=== PATIENT | male | born 1955 | race Caucasian/White ===

== ENCOUNTER 2017-02-17 06:52 | Emergency (ER) | payer OTHER ==
--- NOTE | 2017-02-17 07:53 | DIAGNOSTIC IMAGING REPORT ---
PROCEDURE: XR ELBOW 3 OR 4 VIEWS - RIGHT INDICATION: PAIN IN JOINT TECHNIQUE: Four views of the right elbow. COMPARISON: None. FINDINGS: Normal mineralization. No fractures. Normal osseous alignment. No joint effusion. No suspicious soft-tissue calcification or radiodense foreign bodies. IMPRESSION: 1. Intact right elbow.
--- NOTE | 2017-02-17 08:20 | ED CLINICAL REPORT ---
Clinical Report - Physicians/Mid Levels [facility] [address] [place] [address] 02/17/2017 6:53 [id number] Time Seen: 07:10. Arrived- By private vehicle. Historian- patient. HISTORY OF PRESENT ILLNESS Chief Complaint: Injury to the right elbow. The injury happened 4 days ago. Occurred at home. (He was using his right dominant arm to start a lawnmower). There was forceful exertion of the arm. Patient is experiencing severe pain. No other injury. REVIEW OF SYSTEMS The patient has had new onset of pain-related weakness of the right upper arm and right forearm. No swelling, tingling or numbness. All systems otherwise negative, except as recorded above. PAST HISTORY The patient's dominant hand is the right. Problems: Anxiety Reaction. Hypercholesterolemia. Additional Surgeries: no known surgeries. Medications: Atorvastatin Calcium Oral 20 mg, daily. Citalopram Hydrobromide Oral 30mg, daily. Allergies: No Known Drug Allergy. SOCIAL HISTORY Current every day heavy tobacco smoker (cigarette)- 1 pack per day. No alcohol use or drug use. Is a local resident. He lives with spouse. Has good social support. Patient is employed full-time. 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 He has time to travel and see her for the next 4 days and therefore will not be working. FAMILY HISTORY No significant family medical history. ADDITIONAL NOTES The nursing notes have been reviewed. PHYSICAL EXAM Vital Signs: 02/17/2017 06:57 BP: 132/64. HR: 64. RR: 16. O2 saturation: 98%. Temp: 98 F. Pain level now: 8/10. Have been reviewed. Appearance: Alert. Head: Head atraumatic. Eyes: Pupils equal, round and reactive to light. ENT: Pharynx normal. Neck: Neck supple. CVS: Heart sounds normal. Respiratory: Breath sounds normal. Abdomen: No visible injury. Back: ROM normal. Skin: Skin warm and dry. Normal skin color. Normal skin turgor. Extremities: Right elbow: mild tenderness located in the area of the lateral elbow. Limited ROM secondary to pain (diminished extension and supination). Neurovascular intact distally. Extremities otherwise negative. Neuro, Vascular and Tendons: Vascular status intact. Sensation intact. Motor intact. Tendon function intact. Neuro: No motor deficit. No sensory deficit. LABS, X-RAYS, AND EKG Rt Elbow X-ray: (IMPRESSION: 1. Intact right elbow.). The X-rays were interpreted by the radiologist and contemporaneously by me. PROGRESS AND PROCEDURES Course of Care: Patient is stable. Patient/family counseled. Old medical records ordered. Old records unavailable. Disposition: Discharged. Condition: stable. CLINICAL IMPRESSION Acute tendonitis in the right elbow. INSTRUCTIONS Apply ice for 20 minutes four times a day until better. Don't apply ice directly to skin and don't use while asleep. No driving or operating machinery while taking medication. Do not work with right hand for four days. Warnings: COMPLICATIONS: Complications from this condition include: possible injury to a tendon and possible injury to a ligament. Future problems may include loss of function and pain. GENERAL WARNINGS: Return or contact your physician immediately if your condition worsens or changes unexpectedly, if not improving as expected, or if other problems arise. Your Current Medications: CONTINUE TAKING THE FOLLOWING MEDICATIONS: Atorvastatin Calcium Oral : 20 mg daily. Citalopram Hydrobromide Oral : 30mg daily. Prescription Medications: Ultram 50 mg: take 1-2 orally every 6 hours as needed for pain. Dispense fifteen (15). No refills. Substitution is permissible. OTC Medications: Motrin (available over the counter): take according to label instructions. Follow-up: Follow up with your doctor Wednesday in five days if not better. Understanding of the discharge instructions verbalized by patient and family. (Electronically signed by Narciso Oneill MD 02/17/2017 9:29)
--- NOTE | 2017-02-17 08:20 | ED NURSING NOTES ---
Clinical Report - Nurses [facility] [address] [place] [address] 02/17/2017 6:53 [id number] TRI[facility] Triage time 06:57. Acuity: LEVEL 4. Chief Complaint: RIGHT UPPER EXTREMITY PAIN. Location of symptoms- right shoulder, right arm, right elbow, right forearm and right wrist (worse in elbow). 07:06. Alert. SEPSIS SCREEN: Sepsis Screen. Negative (no infection suspected/documented). GURINDER COMA SCORE: Gurinder Coma Scale: 15- eyes open spontaneously (4); best verbal response- oriented x 4 (5); best motor response- obeys commands (6). --07:06 Garth Garner R.N. 06:57 02/17/17. BP: 132/64. HR: 64. RR: 16. O2 saturation: 98%. Temp: 98 F (oral). Pain level now: 05/27. --07:06 Garth Garner R.N. Weight: 72.5 kg stated. Height/Length: 67 inches Per Patient. BMI: 25.1. --07:02 Garth Garner R.N. Medications Citalopram Hydrobromide Oral 30mg, daily. --06:58 Garth Garner R.N. Atorvastatin Calcium Oral 20 mg, daily. --07:04 Garth Garner R.N. The following entry was struck and corrected by Garth Garner R.N., 07:04 (02/17/17) Reason for correction - other(correction). <<STRICKEN ENTRY-- Citalopram Hydrobromide Oral. --06:58 Garth Garner R.N. --END STRIKE>>. Allergies No Known Drug Allergy. --07:04 Garth Garner R.N. Medication/allergy information source: the patient. --07:06 Garth Garner R.N. History Arrived by private vehicle. Historian: patient. Accompanied by spouse. Primary physician ([facility]). No injury occurred. This occurred (2 days ago). 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 PAST MEDICAL HX: Tetanus status: more than 5 years ago. Immunizations: up-to-date. SOCIAL HX: Current every day heavy tobacco smoker- 1 pack per day. No alcohol use or drug use. No infectious disease exposure. ABUSE ASSESSMENT: No report of abuse. FALL RISK ASSESSMENT: Fall risk assessment completed. No fall risk identified. NUTRITIONAL RISK ASSESSMENT: The nutritional risk assessment revealed no deficiencies. FUNCTIONAL ASSESSMENT: Functional assessment: no impairments noted. LEARNING NEEDS ASSESSMENT: The learning needs assessment revealed no barriers. SKIN INTEGRITY ASSESSMENT: Skin integrity risk assessment completed. No skin integrity risk identified. --07:06 Garth Garner R.N. PROBLEMS: Hypercholesterolemia. Anxiety Reaction. --07:05 Garth Garner R.N. ADDITIONAL SURGERIES: no known surgeries. Interventions ID band on patient. To treatment room. --07:06 Garth Garner R.N. PHYSICAL ASSESSMENT 06:59. Ambulatory to room. Patient gowned. GENERAL / NEURO / PSYCH: Oriented X 4. Alert. EXTREMITIES: Neuro-vascular status intact to the extremity. SKIN: Skin intact. Skin is warm and dry. --07:07 Garth Garner R.N. NURSING PROGRESS NOTES 07:00. Two patient identifiers checked. Call light placed in reach. Bed placed in lowest position. Brakes of bed on. --07:00 Garth Garner R.N. 07:04. Patient ID band checked for patient name and birthdate. Clean catch urine collected with return of yellow-colored clear urine. Specimen labeled in the presence of the patient (Held). --07:09 Garth Garner R.N. Care transferred and report received (from Garth RN). --07:13 Selene Davis R.N. Patient informed about reason for wait and about plan of care. --08:09 Selene Davis R.N. DISPOSITION / DISCHARGE 08:23 02/17/17. BP: 115/85. HR: 52. RR: 14. O2 saturation: 99%. Temp: 98.0 F. Pain level now 8/10. --08:24 Kaylie Cruz 08:25 02/17/17. Condition at departure: improved. The goals identified in the patient's plan of care were met. No learning barriers present. Discharge instructions provided and reviewed with the patient. Reviewed warnings. Reviewed medication(s). Treatments reviewed. Patient verbalized understanding. Written instructions provided in Thai. The patient was discharged by the physician. He was discharged home and accompanied by family. He left the Emergency Department ambulatory and via private vehicle. Family member driving. FALL RISK ASSESSMENT: Fall risk assessment completed. No fall risk identified. --08:25 Tayo Ignacio R.N. 08:26 02/17/17. Departure time: 08:26. --08:26 Tayo Ignacio R.N. Locked/Released at 02/17/2017 8:28 by Tayo Ignacio R.N.
--- NOTE | 2017-02-17 08:20 | ED CLINICAL REPORT ---
Clinical Report - Physicians/Mid Levels [facility] [address] [place] [address] 02/17/2017 6:53 [id number] Time Seen: 07:10. Arrived- By private vehicle. Historian- patient. HISTORY OF PRESENT ILLNESS Chief Complaint: Injury to the right elbow. The injury happened 4 days ago. Occurred at home. (He was using his right dominant arm to start a lawnmower). There was forceful exertion of the arm. Patient is experiencing severe pain. No other injury. REVIEW OF SYSTEMS The patient has had new onset of pain-related weakness of the right upper arm and right forearm. No swelling, tingling or numbness. All systems otherwise negative, except as recorded above. PAST HISTORY The patient's dominant hand is the right. Problems: Anxiety Reaction. Hypercholesterolemia. Additional Surgeries: no known surgeries. Medications: Atorvastatin Calcium Oral 20 mg, daily. Citalopram Hydrobromide Oral 30mg, daily. Allergies: No Known Drug Allergy. SOCIAL HISTORY Current every day heavy tobacco smoker (cigarette)- 1 pack per day. No alcohol use or drug use. Is a local resident. He lives with spouse. Has good social support. Patient is employed full-time. 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 He has time to travel and see her for the next 4 days and therefore will not be working. FAMILY HISTORY No significant family medical history. ADDITIONAL NOTES The nursing notes have been reviewed. PHYSICAL EXAM Vital Signs: 02/17/2017 06:57 BP: 132/64. HR: 64. RR: 16. O2 saturation: 98%. Temp: 98 F. Pain level now: 8/10. Have been reviewed. Appearance: Alert. Head: Head atraumatic. Eyes: Pupils equal, round and reactive to light. ENT: Pharynx normal. Neck: Neck supple. CVS: Heart sounds normal. Respiratory: Breath sounds normal. Abdomen: No visible injury. Back: ROM normal. Skin: Skin warm and dry. Normal skin color. Normal skin turgor. Extremities: Right elbow: mild tenderness located in the area of the lateral elbow. Limited ROM secondary to pain (diminished extension and supination). Neurovascular intact distally. Extremities otherwise negative. Neuro, Vascular and Tendons: Vascular status intact. Sensation intact. Motor intact. Tendon function intact. Neuro: No motor deficit. No sensory deficit. LABS, X-RAYS, AND EKG Rt Elbow X-ray: (IMPRESSION: 1. Intact right elbow.). The X-rays were interpreted by the radiologist and contemporaneously by me. PROGRESS AND PROCEDURES Course of Care: Patient is stable. Patient/family counseled. Old medical records ordered. Old records unavailable. Disposition: Discharged. Condition: stable. CLINICAL IMPRESSION Acute tendonitis in the right elbow. INSTRUCTIONS Apply ice for 20 minutes four times a day until better. Don't apply ice directly to skin and don't use while asleep. No driving or operating machinery while taking medication. Do not work with right hand for four days. Warnings: COMPLICATIONS: Complications from this condition include: possible injury to a tendon and possible injury to a ligament. Future problems may include loss of function and pain. GENERAL WARNINGS: Return or contact your physician immediately if your condition worsens or changes unexpectedly, if not improving as expected, or if other problems arise. Your Current Medications: CONTINUE TAKING THE FOLLOWING MEDICATIONS: Atorvastatin Calcium Oral : 20 mg daily. Citalopram Hydrobromide Oral : 30mg daily. Prescription Medications: Ultram 50 mg: take 1-2 orally every 6 hours as needed for pain. Dispense fifteen (15). No refills. Substitution is permissible. OTC Medications: Motrin (available over the counter): take according to label instructions. Follow-up: Follow up with your doctor Wednesday in five days if not better. Understanding of the discharge instructions verbalized by patient and family. (Electronically signed by Narciso Oneill MD 02/17/2017 9:29)
--- NOTE | 2017-02-17 08:20 | ED ORDER SUMMARY ---
..... Patient: MANUEL ARGUETA OrderSheet [facility] VisitID: [id number] [address] [place] [address] 61y, M Registration Date/Time: 02/17/2017 ORDER SHEET Weight: 72.5 kg (stated) Allergies: No Known Drug Allergy GENERAL ORDERS: Elbow 3 or 4V Right Urgent (07:11 02/17/2017 Donny Varghese verbal order read back to Gaby NOEL) (Ack 7:14 Astrid) (8:25 Renea Varghese) MEDICATION ORDERS: IV FLUIDS: ORDER SHEET NOTES: [Electronically signed by Tayo Ignacio R.N. (08:28 02/17/2017)] [Electronically signed by Narciso Oneill MD (09:29 02/17/2017)] [Electronically locked/signed by Tayo Ignacio R.N. (08:28 02/17/2017)]
--- NOTE | 2017-02-17 08:20 | ED ORDER SUMMARY ---
..... Patient: MANUEL ARGUETA OrderSheet [facility] VisitID: [id number] [address] [place] [address] 61y, M Registration Date/Time: 02/17/2017 ORDER SHEET Weight: 72.5 kg (stated) Allergies: No Known Drug Allergy GENERAL ORDERS: Elbow 3 or 4V Right Urgent (07:11 02/17/2017 Donny Varghese verbal order read back to Gaby NOEL) (Ack 7:14 Astrid) (8:25 Renea Varghese) MEDICATION ORDERS: IV FLUIDS: ORDER SHEET NOTES: [Electronically signed by Tayo Ignacio R.N. (08:28 02/17/2017)] [Electronically signed by Narciso Oneill MD (09:29 02/17/2017)] [Electronically locked/signed by Tayo Ignacio R.N. (08:28 02/17/2017)]
--- NOTE | 2017-02-17 08:20 | ED NURSING NOTES ---
Clinical Report - Nurses [facility] [address] [place] [address] 02/17/2017 6:53 [id number] Triage time 06:57. Acuity: LEVEL 4. Chief Complaint: RIGHT UPPER EXTREMITY PAIN. Location of symptoms- right shoulder, right arm, right elbow, right forearm and right wrist (worse in elbow). 07:06. Alert. SEPSIS SCREEN: Sepsis Screen. Negative (no infection suspected/documented). GURINDER COMA SCORE: Gurinder Coma Scale: 15- eyes open spontaneously (4); best verbal response- oriented x 4 (5); best motor response- obeys commands (6). --07:06 Garth Garner R.N. 06:57 02/17/17. BP: 132/64. HR: 64. RR: 16. O2 saturation: 98%. Temp: 98 F (oral). Pain level now: 05/27. --07:06 Garth Garenr R.N. Weight: 72.5 kg stated. Height/Length: 67 inches Per Patient. BMI: 25.1. --07:02 Garth Garner R.N. Medications Citalopram Hydrobromide Oral 30mg, daily. --06:58 Garth Garner R.N. Atorvastatin Calcium Oral 20 mg, daily. --07:04 Garth Garner R.N. The following entry was struck and corrected by Garth Garner R.N., 07:04 (02/17/17) Reason for correction - other(correction). <<STRICKEN ENTRY-- Citalopram Hydrobromide Oral. --06:58 Garth Garner R.N. --END STRIKE>>. Allergies No Known Drug Allergy. --07:04 Garth Garner R.N. Medication/allergy information source: the patient. --07:06 Garth Garner R.N. History Arrived by private vehicle. Historian: patient. Accompanied by spouse. Primary physician ([facility]). No injury occurred. This occurred (2 days ago). 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 PAST MEDICAL HX: Tetanus status: more than 5 years ago. Immunizations: up-to-date. SOCIAL HX: Current every day heavy tobacco smoker- 1 pack per day. No alcohol use or drug use. No infectious disease exposure. ABUSE ASSESSMENT: No report of abuse. FALL RISK ASSESSMENT: Fall risk assessment completed. No fall risk identified. NUTRITIONAL RISK ASSESSMENT: The nutritional risk assessment revealed no deficiencies. FUNCTIONAL ASSESSMENT: Functional assessment: no impairments noted. LEARNING NEEDS ASSESSMENT: The learning needs assessment revealed no barriers. SKIN INTEGRITY ASSESSMENT: Skin integrity risk assessment completed. No skin integrity risk identified. --07:06 Garth Garner R.N. PROBLEMS: Hypercholesterolemia. Anxiety Reaction. --07:05 Garth Garner R.N. ADDITIONAL SURGERIES: no known surgeries. Interventions ID band on patient. To treatment room. --07:06 Garth Garner R.N. PHYSICAL ASSESSMENT 06:59. Ambulatory to room. Patient gowned. GENERAL / NEURO / PSYCH: Oriented X 4. Alert. EXTREMITIES: Neuro-vascular status intact to the extremity. SKIN: Skin intact. Skin is warm and dry. --07:07 Garth Garner R.N. NURSING PROGRESS NOTES 07:00. Two patient identifiers checked. Call light placed in reach. Bed placed in lowest position. Brakes of bed on. --07:00 Garth Garner R.N. 07:04. Patient ID band checked for patient name and birthdate. Clean catch urine collected with return of yellow-colored clear urine. Specimen labeled in the presence of the patient (Held). --07:09 Garth Garner R.N. Care transferred and report received (from Garth RN). --07:13 Selene Davis R.N. Patient informed about reason for wait and about plan of care. --08:09 Selene Davis R.N. DISPOSITION / DISCHARGE 08:23 02/17/17. BP: 115/85. HR: 52. RR: 14. O2 saturation: 99%. Temp: 98.0 F. Pain level now 8/10. --08:24 Kaylie Cruz 08:25 02/17/17. Condition at departure: improved. The goals identified in the patient's plan of care were met. No learning barriers present. Discharge instructions provided and reviewed with the patient. Reviewed warnings. Reviewed medication(s). Treatments reviewed. Patient verbalized understanding. Written instructions provided in Amharic. The patient was discharged by the physician. He was discharged home and accompanied by family. He left the Emergency Department ambulatory and via private vehicle. Family member driving. FALL RISK ASSESSMENT: Fall risk assessment completed. No fall risk identified. --08:25 Tayo Ignacio R.N. 08:26 02/17/17. Departure time: 08:26. --08:26 Tayo Ignacio R.N. Locked/Released at 02/17/2017 8:28 by Tayo Ignacio R.N.
--- NOTE | 2017-02-17 09:29 | ED DISCHARGE INSTRUCTIONS ---
Patient: MANUEL ARGUETA General Instructions [facility] VisitID: [id number] [place] [address] 61y, M Registration Date/Time: 02/17/2017 Acute tendonitis in the right elbow. INSTRUCTIONS Apply ice for 20 minutes four times a day until better. Don't apply ice directly to skin and don't use while asleep. No driving or operating machinery while taking medication. Do not work with right hand for four days. Warnings: COMPLICATIONS: Complications from this condition include: possible injury to a tendon and possible injury to a ligament. Future problems may include loss of function and pain. GENERAL WARNINGS: Return or contact your physician immediately if your condition worsens or changes unexpectedly, if not improving as expected, or if other problems arise. Your Current Medications: CONTINUE TAKING THE FOLLOWING MEDICATIONS: Atorvastatin Calcium Oral : 20 mg daily. Citalopram Hydrobromide Oral : 30mg daily. Prescription Medications: Ultram 50 mg: take 1-2 orally every 6 hours as needed for pain. Dispense fifteen (15). No refills. Substitution is permissible. OTC Medications: Motrin (available over the counter): take according to label instructions. Follow-up: Follow up with your doctor Wednesday in five days if not better. Understanding of the discharge instructions verbalized by patient and family. ADDITIONAL INFORMATION Tendonitis A tendon is the thick fibrous cord that joins muscle to bone and causes joints to move. Tendonitis is inflammation of the tendon which may be due to overuse, injury or infection. This usually involves the shoulders, forearm, wrist, hands and foot. Symptoms include local pain, swelling and tenderness to the touch. Movement of the involved joint increases the pain. Tendonitis requires about 4 to 6 weeks to heal. It is treated by preventing motion of the tendon with a splint or brace and use of anti-inflammatory medicine. Home Care: Apply an ice pack (ice cubes in a plastic bag, wrapped in a towel) over the injured area for 20 minutes every 1-2 hours the first day for pain relief. Continue this 3-4 times a day until the pain and swelling goes away. Rest the inflamed joint and protect it from movement. You may use ibuprofen (Motrin, Advil) or naproxen (Aleve, Naprosyn) to treat pain and inflammation, unless another medicine was prescribed. If you can't take these medicines, acetaminophen (Tylenol) may help with the pain, but does not treat inflammation. [NOTE : If you have chronic liver or kidney disease or ever had a stomach ulcer or GI bleeding, talk with your doctor before using these medicines.] As your symptoms improve, begin gradual motion at the involved joint. Follow Up With Your Doctor If Not Improving After The First Five Days Of Treatment. Get Prompt Medical Attention If Any Of The Following Occur: Redness over the painful area Increasing pain or swelling at the joint Fever of 100.4F (38C) or higher, or as directed by your healthcare provider Tramadol Hydrochloride Oral tablet What is this medicine? TRAMADOL (TRA ma dole) is a pain reliever. It is used to treat moderate to severe pain in adults. How should I use this medicine? Take this medicine by mouth with a full glass of water. Follow the directions on the prescription label. If the medicine upsets your stomach, take it with food or milk. Do not take more medicine than you are told to take. Talk to your fermentologist regarding the use of this medicine in children. Special care may be needed. What side effects may I notice from receiving this medicine? Side effects that you should report to your doctor or health inpatient care manager rn as soon as possible: allergic reactions like skin rash, itching or hives, swelling of the face, lips, or tongue breathing difficulties, wheezing confusion itching light headedness or fainting spells redness, blistering, peeling or loosening of the skin, including inside the mouth seizures Side effects that usually do not require medical attention (report to your doctor or health inpatient care manager rn if they continue or are bothersome): constipation dizziness drowsiness headache nausea, vomiting What may interact with this medicine? Do not take this medicine with any of the following medications: MAOIs like Carbex, Eldepryl, Marplan, Nardil, and Parnate This medicine may also interact with the following medications: alcohol or medicines that contain alcohol antihistamines benzodiazepines bupropion carbamazepine or oxcarbazepine clozapine cyclobenzaprine digoxin furazolidone linezolid medicines for depression, anxiety, or psychotic disturbances medicines for migraine headache like almotriptan, eletriptan, frovatriptan, naratriptan, rizatriptan, sumatriptan, zolmitriptan medicines for pain like pentazocine, buprenorphine, butorphanol, meperidine, nalbuphine, and propoxyphene medicines for sleep muscle relaxants naltrexone phenobarbital phenothiazines like perphenazine, thioridazine, chlorpromazine, mesoridazine, fluphenazine, prochlorperazine, promazine, and trifluoperazine procarbazine warfarin What if I miss a dose? If you miss a dose, take it as soon as you can. If it is almost time for your next dose, take only that dose. Do not take double or extra doses. Where should I keep my medicine? Keep out of the reach of children. Store at room temperature between 15 and 30 degrees C (59 and 86 degrees F). Keep container tightly closed. Throw away any unused medicine after the expiration date. What should I tell my health care provider before I take this medicine? They need to know if you have any of these conditions: brain tumor depression drug abuse or addiction head injury if you frequently drink alcohol containing drinks kidney disease or trouble passing urine liver disease lung disease, asthma, or breathing problems seizures or epilepsy suicidal thoughts, plans, or attempt; a previous suicide attempt by you or a family member an unusual or allergic reaction to tramadol, codeine, other medicines, foods, dyes, or preservatives or trying to get breast-feeding What should I watch for while using this medicine? Tell your doctor or health inpatient care manager rn if your pain does not go away, if it gets worse, or if you have new or a different type of pain. You may develop tolerance to the medicine. Tolerance means that you will need a higher dose of the medicine for pain relief. Tolerance is normal and is expected if you take this medicine for a long time. Do not suddenly stop taking your medicine because you may develop a severe reaction. Your body becomes used to the medicine. This does NOT mean you are addicted. Addiction is a behavior related to getting and using a drug for a non-medical reason. If you have pain, you have a medical reason to take pain medicine. Your doctor will tell you how much medicine to take. If your doctor wants you to stop the medicine, the dose will be slowly lowered over time to avoid any side effects. You may get drowsy or dizzy. Do not drive, use machinery, or do anything that needs mental alertness until you know how this medicine affects you. Do not stand or sit up quickly, especially if you are an older patient. This reduces the risk of dizzy or fainting spells. Alcohol can increase or decrease the effects of this medicine. Avoid alcoholic drinks. You may have constipation. Try to have a bowel movement at least every 2 to 3 days. If you do not have a bowel movement for 3 days, call your doctor or health inpatient care manager rn. Your mouth may get dry. Chewing sugarless gum or sucking hard candy, and drinking plenty of water may help. Contact your doctor if the problem does not go away or is severe. Ibuprofen Oral tablet What is this medicine? IBUPROFEN (eye BYOO proe fen) is a non-steroidal anti-inflammatory drug (NSAID). It is used for dental pain, fever, headaches or migraines, osteoarthritis, rheumatoid arthritis, or painful monthly periods. It can also relieve minor aches and pains caused by a cold, flu, or sore throat. How should I use this medicine? Take this medicine by mouth with a glass of water. Follow the directions on the prescription label. Take this medicine with food if your stomach gets upset. Try to not lie down for at least 10 minutes after you take the medicine. Take your medicine at regular intervals. Do not take your medicine more often than directed. A special MedGuide will be given to you by the pharmacist with each prescription and refill. Be sure to read this information carefully each time. Talk to your fermentologist regarding the use of this medicine in children. Special care may be needed. What side effects may I notice from receiving this medicine? Side effects that you should report to your doctor or health inpatient care manager rn as soon as possible: allergic reactions like skin rash, itching or hives, swelling of the face, lips, or tongue black or bloody stools, blood in the urine or in vomit breathing problems changes in vision chest pain general ill feeling or flu-like symptoms nausea or vomiting redness, blistering, peeling or loosening of the skin, including inside the mouth slurred speech or weakness on one side of the body stomach pain unexplained weight gain or swelling unusually weak or tired yellowing of eyes or skin Side effects that usually do not require medical attention (report to your doctor or health inpatient care manager rn if they continue or are bothersome): constipation or diarrhea dizziness gas or heartburn stomach upset What may interact with this medicine? Do not take this medicine with any of the following medications: cidofovir ketorolac methotrexate pemetrexed This medicine may also interact with the following medications: alcohol aspirin diuretics lithium other drugs for inflammation like prednisone warfarin What if I miss a dose? If you miss a dose, take it as soon as you can. If it is almost time for your next dose, take only that dose. Do not take double or extra doses. Where should I keep my medicine? Keep out of the reach of children. Store at room temperature between 15 and 30 degrees C (59 and 86 degrees F). Keep container tightly closed. Throw away any unused medicine after the expiration date. What should I tell my health care provider before I take this medicine? They need to know if you have any of these conditions: asthma cigarette smoker drink more than 3 alcohol containing drinks a day heart disease or circulation problems such as heart failure or leg edema (fluid retention) high blood pressure kidney disease liver disease stomach bleeding or ulcers an unusual or allergic reaction to ibuprofen, aspirin, other NSAIDS, other medicines, foods, dyes, or preservatives or trying to get breast-feeding What should I watch for while using this medicine? Tell your doctor or healthcare professional if your symptoms do not start to get better or if they get worse. This medicine does not prevent heart attack or stroke. In fact, this medicine may increase the chance of a heart attack or stroke. The chance may increase with longer use of this medicine and in people who have heart disease. If you take aspirin to prevent heart attack or stroke, talk with your doctor or health inpatient care manager rn. Do not take other medicines that contain aspirin, ibuprofen, or naproxen with this medicine. Side effects such as stomach upset, nausea, or ulcers may be more likely to occur. Many medicines available without a prescription should not be taken with this medicine. This medicine can cause ulcers and bleeding in the stomach and intestines at any time during treatment. Ulcers and bleeding can happen without warning symptoms and can cause . To reduce your risk, do not smoke cigarettes or drink alcohol while you are taking this medicine. You may get drowsy or dizzy. Do not drive, use machinery, or do anything that needs mental alertness until you know how this medicine affects you. Do not stand or sit up quickly, especially if you are an older patient. This reduces the risk of dizzy or fainting spells. This medicine can cause you to bleed more easily. Try to avoid damage to your teeth and gums when you brush or floss your teeth. You have been given the following additional information: Tendonitis Tramadol Hydrochloride Oral tablet Ibuprofen Oral tablet No driving or operating machinery while taking medication. Do not work with right hand for four days. (Electronically signed by Narciso Oneill MD 02/17/2017 9:29)
--- NOTE | 2017-02-17 09:30 | ED MED RECONCILIATION SUMMARY ---
Patient: MANUEL ARGUETA Medication Reconciliation Report [facility] VisitID: [id number] [address] [place] [address] 61y, M Registration Date/Time: 02/17/2017 Weight: 72.5 kg Height/Length: 67 in. BMI: 25.1 ALLERGIES: No Known Drug Allergy The patient's Home Medications are listed below: CONTINUE TAKING THE FOLLOWING MEDICATIONS: Atorvastatin Calcium Oral 20 mg, daily Citalopram Hydrobromide Oral 30mg, daily The source(s) of the original Home Medication information: patient The following Medications were given to the patient in the Emergency Department: None. The following Medications were prescribed to the patient: Motrin (available over the counter): take according to label instructions. -- Narciso Oneill MD Ultram 50 mg: take 1-2 orally every 6 hours as needed for pain. Dispense fifteen (15). No refills. Substitution is permissible. -- Narciso Oneill MD
--- NOTE | 2017-02-17 09:30 | ED MAR SUMMARY ---
..... Medication Administration Record [facility] [address], [place] [id number] Patient: MANUEL ARGUETA Visit ID: [id number] 61y, M Weight: 72.5 kg Height/Length: 67 in BMI: 25.1 ALLERGIES: No Known Drug Allergy
--- NOTE | 2017-02-17 09:30 | ED MAR SUMMARY ---
..... Medication Administration Record [facility] [address] [place], [place] [id number] Patient: MANUEL ARGUETA Visit ID: [id number] 61y, M Weight: 72.5 kg Height/Length: 67 in BMI: 25.1 ALLERGIES: No Known Drug Allergy
--- NOTE | 2017-02-17 09:30 | ED MED RECONCILIATION SUMMARY ---
Patient: MANUEL ARGUETA Medication Reconciliation Report [facility] VisitID: [id number] [address] [place] [address] 61y, M Registration Date/Time: 02/17/2017 Weight: 72.5 kg Height/Length: 67 in. BMI: 25.1 ALLERGIES: No Known Drug Allergy The patient's Home Medications are listed below: CONTINUE TAKING THE FOLLOWING MEDICATIONS: Atorvastatin Calcium Oral 20 mg, daily Citalopram Hydrobromide Oral 30mg, daily The source(s) of the original Home Medication information: patient The following Medications were given to the patient in the Emergency Department: None. The following Medications were prescribed to the patient: Motrin (available over the counter): take according to label instructions. -- Narciso Oneill MD Ultram 50 mg: take 1-2 orally every 6 hours as needed for pain. Dispense fifteen (15). No refills. Substitution is permissible. -- Narciso Oneill MD
== END 2017-02-17 08:26 | disposition home or self-care (01) ==
LOC: ED SRH 06:52
DX: M65.831 Other synovitis and tenosynovitis, right forearm (principal); X58.XXXA Exposure to other specified factors, initial encounter; Y93.9 Activity, unspecified; Y92.019 Unspecified place in single-family (private) house as the place of occurrence of the external cause; Y99.9 Unspecified external cause status; E78.00 Pure hypercholesterolemia, unspecified; Z79.899 Other long term (current) drug therapy; F17.219 Nicotine dependence, cigarettes, with unspecified nicotine-induced disorders

== ENCOUNTER 2017-02-18 06:39 | Emergency (ER) | payer OTHER ==
--- NOTE | 2017-02-18 07:31 | ED CLINICAL REPORT ---
Clinical Report - Physicians/Mid Levels [facility] [address] [place] [address] 02/18/2017 6:40 Patient: MANUEL ARGUETA Time Seen: 06:56. Arrived- By private vehicle. Historian- patient and spouse. HISTORY OF PRESENT ILLNESS Chief Complaint: Injury to the right elbow. The injury happened 5 - 6 days ago. 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 There was forceful exertion of the arm. The patient has been repetitively working with the arm. Occurred at home and work. Patient is experiencing moderate pain. Patient also notes injury to the neck. Patient denies injury to the head and other injury (He also notes intermittent posterior neck pain when he stops icing his left elbow). ( Seen yesterday at [facility] ED). REVIEW OF SYSTEMS The patient has had swelling,, tingling, and numbness. No weakness, suspected foreign body or skin laceration. He is under a lot of stress - states that he has to go to [place] today to see his dying Mother. All systems otherwise negative, except as recorded above. PAST HISTORY Problems: Anxiety Reaction. Hypercholesterolemia. Additional Surgeries: no known surgeries. The patient's dominant hand is the right. Tetanus immunization status is unknown. SOCIAL HISTORY Smoker- current status unknown. No alcohol use or drug use. 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 ADDITIONAL NOTES The nursing notes have been reviewed. PHYSICAL EXAM Vital Signs: 02/18/2017 06:45 BP: 96/62. HR: 55. RR: 18. O2 saturation: 98%. Temp: 97.8 F. Pain level now: 8/10. Appearance: Alert. Oriented X3. No acute distress. Head: Head atraumatic. Eyes: Eyes normal inspection. No scleral icterus or pale conjunctivae. ENT: Nose normal. Pharynx normal. Neck: Normal inspection. Neck supple. No pain with movement of head/neck. C-spine non-tender. No vertebral tenderness. CVS: Normal heart rate and rhythm. Heart sounds normal. Pulses normal. Respiratory: No respiratory distress. Breath sounds normal. Abdomen: No visible injury. Soft and nontender. No mass. Back: Normal inspection. No tenderness. Skin: Skin intact. Skin warm and dry. Normal skin color. Normal skin turgor. Extremities: No signs of infection present in the upper extremities. Right elbow: mild tenderness located in the area of the posterior elbow. Neurovascular intact distally. No erythema, swelling, laceration, abrasion or ecchymosis. No puncture wound, foreign body or deformity. No joint effusion or limitation in ROM. Upper extremity otherwise negative. Extremities otherwise negative. Neuro, Vascular and Tendons: Vascular status intact. Sensation intact. Motor intact. Tendon function intact. Neuro: Oriented X 3. No motor deficit. Sensory deficit present. (ulnar aspect of right hand). Altered sensation to light touch. LABS, X-RAYS, AND EKG Rt Elbow X-ray: No fracture. Normal alignment. No bony lesion, air in the soft tissue or foreign body. Soft tissues normal. Joint spaces normal. (DONE YESTERDAY). Views: AP, lateral and oblique. Technique: good. The X-rays were interpreted contemporaneously by me. PROGRESS AND PROCEDURES Course of Care: Most c/w nerve compression / contusion / cubital tunnel syndrome secondary to inflammation /injury - doubt cervical radiculopathy (pt states pain in neck and elbow resolve with ice to elbow). No signs of infection now in elbow or spine - no reason to suspect spinal / epidural infectious process. Patient/family counseled. Old ED records reviewed. Disposition: Discharged. Condition: stable and improved. CLINICAL IMPRESSION Acute nontraumatic pain in the neck. 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 Acute inflammatory tendonitis in the right elbow. Possible acute right lower cervical radiculopathy. INSTRUCTIONS Apply ice. Elevate affected areas above chest level. (Cubital Tunnel Syndrome is a condition that involves pressure or stretching of the ulnar nerve (also known as the funny bone nerve), which can cause numbness or tingling in the ring and small fingers, pain in the forearm, and/or weakness in the hand. The ulnar nerve (Figure 1) runs in a groove on the inner side of the elbow. Cubital tunnel syndrome can cause pain, loss of sensation, tingling and/or weakness. Pins and needles usually are felt in the ring and small fingers. These symptoms are often felt when the elbow is bent for a long period of time, such as while holding a phone or while sleeping. Some people feel weak or clumsy. Do not take ultram and oxycodone at the same time). Warnings: INFECTION: Watch for signs of infection (increasing heat and redness, pus-like drainage, swelling, or increased pain). Return or see your doctor if these signs occur. SEDATIVE MEDICATION: You were given sedative medication during your visit. Do not drive or operate dangerous machinery. CONTROLLED SUBSTANCE WARNINGS. GENERAL WARNINGS: Return or contact your physician immediately if your condition worsens or changes unexpectedly, if not improving as expected, or if other problems arise. Your Current Medications: CONTINUE TAKING THE FOLLOWING MEDICATIONS: Atorvastatin Calcium Oral : 20 mg daily. Citalopram Hydrobromide Oral : 30mg daily. Prescription Medications: Oxycodone/APAP 5 mg/325 mg: take 1-2 tablets orally every 8 hours as needed for pain. Dispense twelve (12). No refill. Prednisone 20 mg: take 3 orally every day for 5 days. Dispense fifteen (15). No refills. OTC Medications: Acetaminophen (available over the counter): take according to label instructions. Motrin IB 200 mg (available over the counter): take 2 orally every 8 hours as needed for pain, stiffness or swelling Follow-up: Follow up with your doctor [facility] in about five days. (Electronically signed by Uriel Estrada DO 02/18/2017 8:12)
--- NOTE | 2017-02-18 07:31 | ED CLINICAL REPORT ---
Clinical Report - Physicians/Mid Levels [facility] [address] [place] [address] 02/18/2017 6:40 Patient: MANUEL ARGUETA Time Seen: 06:56. Arrived- By private vehicle. Historian- patient and spouse. HISTORY OF PRESENT ILLNESS Chief Complaint: Injury to the right elbow. The injury happened 5 - 6 days ago. 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 There was forceful exertion of the arm. The patient has been repetitively working with the arm. Occurred at home and work. Patient is experiencing moderate pain. Patient also notes injury to the neck. Patient denies injury to the head and other injury (He also notes intermittent posterior neck pain when he stops icing his left elbow). ( Seen yesterday at [facility] ED). REVIEW OF SYSTEMS The patient has had swelling,, tingling, and numbness. No weakness, suspected foreign body or skin laceration. He is under a lot of stress - states that he has to go to [place] today to see his dying Mother. All systems otherwise negative, except as recorded above. PAST HISTORY Problems: Anxiety Reaction. Hypercholesterolemia. Additional Surgeries: no known surgeries. The patient's dominant hand is the right. Tetanus immunization status is unknown. SOCIAL HISTORY Smoker- current status unknown. No alcohol use or drug use. 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 ADDITIONAL NOTES The nursing notes have been reviewed. PHYSICAL EXAM Vital Signs: 02/18/2017 06:45 BP: 96/62. HR: 55. RR: 18. O2 saturation: 98%. Temp: 97.8 F. Pain level now: 8/10. Appearance: Alert. Oriented X3. No acute distress. Head: Head atraumatic. Eyes: Eyes normal inspection. No scleral icterus or pale conjunctivae. ENT: Nose normal. Pharynx normal. Neck: Normal inspection. Neck supple. No pain with movement of head/neck. C-spine non-tender. No vertebral tenderness. CVS: Normal heart rate and rhythm. Heart sounds normal. Pulses normal. Respiratory: No respiratory distress. Breath sounds normal. Abdomen: No visible injury. Soft and nontender. No mass. Back: Normal inspection. No tenderness. Skin: Skin intact. Skin warm and dry. Normal skin color. Normal skin turgor. Extremities: No signs of infection present in the upper extremities. Right elbow: mild tenderness located in the area of the posterior elbow. Neurovascular intact distally. No erythema, swelling, laceration, abrasion or ecchymosis. No puncture wound, foreign body or deformity. No joint effusion or limitation in ROM. Upper extremity otherwise negative. Extremities otherwise negative. Neuro, Vascular and Tendons: Vascular status intact. Sensation intact. Motor intact. Tendon function intact. Neuro: Oriented X 3. No motor deficit. Sensory deficit present. (ulnar aspect of right hand). Altered sensation to light touch. LABS, X-RAYS, AND EKG Rt Elbow X-ray: No fracture. Normal alignment. No bony lesion, air in the soft tissue or foreign body. Soft tissues normal. Joint spaces normal. (DONE YESTERDAY). Views: AP, lateral and oblique. Technique: good. The X-rays were interpreted contemporaneously by me. PROGRESS AND PROCEDURES Course of Care: Most c/w nerve compression / contusion / cubital tunnel syndrome secondary to inflammation /injury - doubt cervical radiculopathy (pt states pain in neck and elbow resolve with ice to elbow). No signs of infection now in elbow or spine - no reason to suspect spinal / epidural infectious process. Patient/family counseled. Old ED records reviewed. Disposition: Discharged. Condition: stable and improved. CLINICAL IMPRESSION Acute nontraumatic pain in the neck. 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 Acute inflammatory tendonitis in the right elbow. Possible acute right lower cervical radiculopathy. INSTRUCTIONS Apply ice. Elevate affected areas above chest level. (Cubital Tunnel Syndrome is a condition that involves pressure or stretching of the ulnar nerve (also known as the funny bone nerve), which can cause numbness or tingling in the ring and small fingers, pain in the forearm, and/or weakness in the hand. The ulnar nerve (Figure 1) runs in a groove on the inner side of the elbow. Cubital tunnel syndrome can cause pain, loss of sensation, tingling and/or weakness. Pins and needles usually are felt in the ring and small fingers. These symptoms are often felt when the elbow is bent for a long period of time, such as while holding a phone or while sleeping. Some people feel weak or clumsy. Do not take ultram and oxycodone at the same time). Warnings: INFECTION: Watch for signs of infection (increasing heat and redness, pus-like drainage, swelling, or increased pain). Return or see your doctor if these signs occur. SEDATIVE MEDICATION: You were given sedative medication during your visit. Do not drive or operate dangerous machinery. CONTROLLED SUBSTANCE WARNINGS. GENERAL WARNINGS: Return or contact your physician immediately if your condition worsens or changes unexpectedly, if not improving as expected, or if other problems arise. Your Current Medications: CONTINUE TAKING THE FOLLOWING MEDICATIONS: Atorvastatin Calcium Oral : 20 mg daily. Citalopram Hydrobromide Oral : 30mg daily. Prescription Medications: Oxycodone/APAP 5 mg/325 mg: take 1-2 tablets orally every 8 hours as needed for pain. Dispense twelve (12). No refill. Prednisone 20 mg: take 3 orally every day for 5 days. Dispense fifteen (15). No refills. OTC Medications: Acetaminophen (available over the counter): take according to label instructions. Motrin IB 200 mg (available over the counter): take 2 orally every 8 hours as needed for pain, stiffness or swelling Follow-up: Follow up with your doctor [facility] in about five days. (Electronically signed by Uriel Estrada DO 02/18/2017 8:12)
--- NOTE | 2017-02-18 07:32 | ED NURSING NOTES ---
Clinical Report - Nurses [facility] [place] [address] 02/18/2017 6:40 Patient: MANUEL ARGUETA TRIAGE Triage time 06:45. Acuity: LEVEL 4. Chief Complaint: INJURY TO RIGHT ELBOW. INJURY TO THE RIGHT ELBOW. Alert. GURINDER COMA SCORE: Gurinder Coma Scale: 15- eyes open spontaneously (4); best verbal response- oriented x 4 (5); best motor response- obeys commands (6). --06:50 Marty Venegas R.N. 06:45 02/18/17. BP: 96/62 taken while sitting. HR: 55. RR: 18. O2 saturation: 98% on room air. Temp: 97.8 F (oral). Pain level now: 05/27. --06:50 Maryt Venegas R.N. Weight: 72.5 kg stated. Height/Length: 67 inches Per Patient. BMI: 25.1. --06:45 Marty Venegas R.N. Medications Atorvastatin Calcium Oral 20 mg, daily. Citalopram Hydrobromide Oral 30mg, daily. --06:45 Marty Venegas R.N. Allergies No Known Drug Allergy. --06:45 Marty Venegas R.N. History Arrived by private vehicle, and accompanied by family. This occurred ("Wednesday"). 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 He states that he was in this ER yesterday "and they did nothing for me."). SOCIAL HX: Heavy tobacco smoker (cigarette)- 1 pack per day. No alcohol use or drug use. ( denies SI/HI). ABUSE ASSESSMENT: No report of abuse. SELF HARM ASSESSMENT: A self harm assessment was performed. The patient answered "no" to the question "Do you have thoughts of harming or killing yourself?" and "Are you here because you tried to hurt yourself?". FALL RISK ASSESSMENT: Fall risk assessment completed. No fall risk identified. NUTRITIONAL RISK ASSESSMENT: The nutritional risk assessment revealed no deficiencies. FUNCTIONAL ASSESSMENT: Functional assessment: no impairments noted. LEARNING NEEDS ASSESSMENT: The learning needs assessment revealed no barriers. SKIN INTEGRITY ASSESSMENT: Skin integrity risk assessment completed. No skin integrity risk identified. --06:50 Marty Venegas R.N. PROBLEMS: Tendonitis. Anxiety Reaction. Hypercholesterolemia. --06:46 Marty Venegas R.N. ADDITIONAL SURGERIES: no known surgeries. Interventions ID band on patient. To treatment room. --06:50 Marty Venegas R.N. PHYSICAL ASSESSMENT Ambulatory to room. GENERAL / NEURO / PSYCH: Oriented X 4. Alert. Appears in pain. EXTREMITIES: Capillary refill is less than 2 seconds in the extremities. ( intermittent numbness in right 4th and 5th fingers. pinkness over right elbow, no external abnormalities observed on elbow area.). SKIN: Skin intact. Skin is warm and dry. --06:52 Marty Venegas R.N. NURSING PROGRESS NOTES Cold pack applied. Reassurance given. Two patient identifiers checked. Call light placed in reach. Side rails up x 1. Bed placed in lowest position. Brakes of bed on. Patient ready for evaluation- chart flagged. Care transferred. Patient waiting for evaluation. --06:52 Marty Venegas R.N. ( Report given to Sun Miguel RN). --07:00 Marty Venegas R.N. 07:00. Care transferred and report received. --07:16 Sun Mo R.N. DISPOSITION / DISCHARGE Departure time: 0740. Condition at departure: unchanged. ( vitals deferred). No learning barriers present. Discharge instructions provided and reviewed with the patient and spouse. Reviewed medication(s) information. Prescription(s) given to the patient. Treatments reviewed (ice). Reviewed referral to family practice for followup. The patient was discharged home and accompanied by spouse. He left the Emergency Department ambulatory and via private vehicle. --07:42 Sun Mo R.N. Locked/Released at 02/18/2017 7:43 by Sun Mo R.N.
--- NOTE | 2017-02-18 07:32 | ED NURSING NOTES ---
Clinical Report - Nurses [facility] [place] [address] 02/18/2017 6:40 Patient: MANUEL ARGUETA TRIAGE Triage time 06:45. Acuity: LEVEL 4. Chief Complaint: INJURY TO RIGHT ELBOW. INJURY TO THE RIGHT ELBOW. Alert. GURINDER COMA SCORE: Gurinder Coma Scale: 15- eyes open spontaneously (4); best verbal response- oriented x 4 (5); best motor response- obeys commands (6). --06:50 Marty Venegas R.N. 06:45 02/18/17. BP: 96/62 taken while sitting. HR: 55. RR: 18. O2 saturation: 98% on room air. Temp: 97.8 F (oral). Pain level now: 05/27. --06:50 Marty Venegas R.N. Weight: 72.5 kg stated. Height/Length: 67 inches Per Patient. BMI: 25.1. --06:45 Marty Venegas R.N. Medications Atorvastatin Calcium Oral 20 mg, daily. Citalopram Hydrobromide Oral 30mg, daily. --06:45 Marty Venegas R.N. Allergies No Known Drug Allergy. --06:45 Marty Venegas R.N. History Arrived by private vehicle, and accompanied by family. This occurred ("Wednesday"). 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 He states that he was in this ER yesterday "and they did nothing for me."). SOCIAL HX: Heavy tobacco smoker (cigarette)- 1 pack per day. No alcohol use or drug use. ( denies SI/HI). ABUSE ASSESSMENT: No report of abuse. SELF HARM ASSESSMENT: A self harm assessment was performed. The patient answered "no" to the question "Do you have thoughts of harming or killing yourself?" and "Are you here because you tried to hurt yourself?". FALL RISK ASSESSMENT: Fall risk assessment completed. No fall risk identified. NUTRITIONAL RISK ASSESSMENT: The nutritional risk assessment revealed no deficiencies. FUNCTIONAL ASSESSMENT: Functional assessment: no impairments noted. LEARNING NEEDS ASSESSMENT: The learning needs assessment revealed no barriers. SKIN INTEGRITY ASSESSMENT: Skin integrity risk assessment completed. No skin integrity risk identified. --06:50 Marty Venegas R.N. PROBLEMS: Tendonitis. Anxiety Reaction. Hypercholesterolemia. --06:46 Marty Venegas R.N. ADDITIONAL SURGERIES: no known surgeries. Interventions ID band on patient. To treatment room. --06:50 Marty Venegas R.N. PHYSICAL ASSESSMENT Ambulatory to room. GENERAL / NEURO / PSYCH: Oriented X 4. Alert. Appears in pain. EXTREMITIES: Capillary refill is less than 2 seconds in the extremities. ( intermittent numbness in right 4th and 5th fingers. pinkness over right elbow, no external abnormalities observed on elbow area.). SKIN: Skin intact. Skin is warm and dry. --06:52 Marty Venegas R.N. NURSING PROGRESS NOTES Cold pack applied. Reassurance given. Two patient identifiers checked. Call light placed in reach. Side rails up x 1. Bed placed in lowest position. Brakes of bed on. Patient ready for evaluation- chart flagged. Care transferred. Patient waiting for evaluation. --06:52 Marty Venegas R.N. ( Report given to Sun Miguel RN). --07:00 Marty Venegas R.N. 07:00. Care transferred and report received. --07:16 Sun Mo R.N. DISPOSITION / DISCHARGE Departure time: 0740. Condition at departure: unchanged. ( vitals deferred). No learning barriers present. Discharge instructions provided and reviewed with the patient and spouse. Reviewed medication(s) information. Prescription(s) given to the patient. Treatments reviewed (ice). Reviewed referral to family practice for followup. The patient was discharged home and accompanied by spouse. He left the Emergency Department ambulatory and via private vehicle. --07:42 Sun Mo R.N. Locked/Released at 02/18/2017 7:43 by Sun Mo R.N.
--- NOTE | 2017-02-18 08:12 | ED MED RECONCILIATION SUMMARY ---
Patient: MANUEL ARGUETA Medication Reconciliation Report [facility] VisitID: [id number] [place] [address] 61y, M Registration Date/Time: 02/18/2017 Weight: 72.5 kg Height/Length: 67 in. BMI: 25.1 ALLERGIES: No Known Drug Allergy The patient's Home Medications are listed below: CONTINUE TAKING THE FOLLOWING MEDICATIONS: Atorvastatin Calcium Oral 20 mg, daily Citalopram Hydrobromide Oral 30mg, daily The source(s) of the original Home Medication information: Not obtained. The following Medications were given to the patient in the Emergency Department: None. The following Medications were prescribed to the patient: Acetaminophen (available over the counter): take according to label instructions. -- Uriel Estrada DO Motrin IB 200 mg (available over the counter): take 2 orally every 8 hours as needed for pain, stiffness or swelling -- Uriel Estrada DO Oxycodone/APAP 5 mg/325 mg: take 1-2 tablets orally every 8 hours as needed for pain. Dispense twelve (12). No refill. -- Uriel Estrada DO Prednisone 20 mg: take 3 orally every day for 5 days. Dispense fifteen (15). No refills. -- Uriel Estrada DO
--- NOTE | 2017-02-18 08:12 | ED DISCHARGE INSTRUCTIONS ---
Patient: MANUEL ARGUETA General Instructions [facility] VisitID: [id number] [place] [address] 61y, M Registration Date/Time: 02/18/2017 Acute nontraumatic pain in the neck. 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 Acute inflammatory tendonitis in the right elbow. INSTRUCTIONS Apply ice. Elevate affected areas above chest level. (Cubital Tunnel Syndrome is a condition that involves pressure or stretching of the ulnar nerve (also known as the funny bone nerve), which can cause numbness or tingling in the ring and small fingers, pain in the forearm, and/or weakness in the hand. The ulnar nerve (Figure 1) runs in a groove on the inner side of the elbow. Cubital tunnel syndrome can cause pain, loss of sensation, tingling and/or weakness. Pins and needles usually are felt in the ring and small fingers. These symptoms are often felt when the elbow is bent for a long period of time, such as while holding a phone or while sleeping. Some people feel weak or clumsy. Do not take ultram and oxycodone at the same time). Warnings: INFECTION: Watch for signs of infection (increasing heat and redness, pus-like drainage, swelling, or increased pain). Return or see your doctor if these signs occur. SEDATIVE MEDICATION: You were given sedative medication during your visit. Do not drive or operate dangerous machinery. CONTROLLED SUBSTANCE WARNINGS. GENERAL WARNINGS: Return or contact your physician immediately if your condition worsens or changes unexpectedly, if not improving as expected, or if other problems arise. Your Current Medications: CONTINUE TAKING THE FOLLOWING MEDICATIONS: Atorvastatin Calcium Oral : 20 mg daily. Citalopram Hydrobromide Oral : 30mg daily. Prescription Medications: Oxycodone/APAP 5 mg/325 mg: take 1-2 tablets orally every 8 hours as needed for pain. Dispense twelve (12). No refill. Prednisone 20 mg: take 3 orally every day for 5 days. Dispense fifteen (15). No refills. OTC Medications: Acetaminophen (available over the counter): take according to label instructions. Motrin IB 200 mg (available over the counter): take 2 orally every 8 hours as needed for pain, stiffness or swelling Follow-up: Follow up with your doctor [facility] in about five days. ADDITIONAL INFORMATION Tendonitis A tendon is the thick fibrous cord that joins muscle to bone and causes joints to move. Tendonitis is inflammation of the tendon which may be due to overuse, injury or infection. This usually involves the shoulders, forearm, wrist, hands and foot. Symptoms include local pain, swelling and tenderness to the touch. Movement of the involved joint increases the pain. Tendonitis requires about 4 to 6 weeks to heal. It is treated by preventing motion of the tendon with a splint or brace and use of anti-inflammatory medicine. Home Care: Apply an ice pack (ice cubes in a plastic bag, wrapped in a towel) over the injured area for 20 minutes every 1-2 hours the first day for pain relief. Continue this 3-4 times a day until the pain and swelling goes away. Rest the inflamed joint and protect it from movement. You may use ibuprofen (Motrin, Advil) or naproxen (Aleve, Naprosyn) to treat pain and inflammation, unless another medicine was prescribed. If you can't take these medicines, acetaminophen (Tylenol) may help with the pain, but does not treat inflammation. [NOTE : If you have chronic liver or kidney disease or ever had a stomach ulcer or GI bleeding, talk with your doctor before using these medicines.] As your symptoms improve, begin gradual motion at the involved joint. Follow Up With Your Doctor If Not Improving After The First Five Days Of Treatment. Get Prompt Medical Attention If Any Of The Following Occur: Redness over the painful area Increasing pain or swelling at the joint Fever of 100.4F (38C) or higher, or as directed by your healthcare provider Ulnar Nerve Palsy The ulnar nerve travels down the arm, passing along the inside of the elbow. It controls movement and feeling in the wrist and hand. Palsy of the ulnar nerve occurs when there is injury to this nerve. The most common cause of ulnar nerve palsy is leaning on the elbow for long periods of time. An elbow fracture or dislocation can also injure the nerve. There are other causes, too. Ulnar nerve palsy causes a [id number] feeling and weakness in the hand. If the condition is prolonged, the muscles of the hand become thin and tight. The fingers bend into a contracted position. Treatment of permanent nerve damage involves physical therapy to prevent tightening of the muscles of the hand. Home Care Avoid resting your weight on your elbows when sitting at a table or riding in a vehicle. If you were given a sling, wear it as directed for support. Rest the arm until you get normal feeling and strength back. Follow Up with your doctor or as advised by our staff. Get Prompt Medical Attention if any of the following occur: Increasing arm swelling or pain Numbness or weakness of the face or leg Slurred speech, confusion, trouble speaking, walking or seeing Pinched Nerve, Neck [Cervical Radiculopathy] A pinched nerve in the neck (also called "Cervical Radiculopathy") is caused by irritation or pressure on the nerve that goes from the spinal cord to the arm. This may be caused by a bulging spinal disk (a "spinal disk" is the cushion between each spinal bone) or narrowing of the spinal joint due to arthritis. This can cause numbness, tingling, deep aching or electrical shooting pain from the side of the neck all the way down to the fingers on one side. A pinched nerve may begin after a sudden turning/bending force (such as in a car accident) or after a simple awkward movement. In either case, muscle spasm is commonly present and contributes to the pain. Home Care: 1) Rest and relax the muscles. Use a comfortable pillow that supports the head and keeps the spine in a neutral position. The position of the head should not be tilted forward or backward. A rolled up towel may help for a custom fit. 2) Some persons find relief with heat (hot shower, hot bath or heating pad) and massage, while others prefer cold packs (crushed or cubed ice in a plastic bag, wrapped in a towel) . Try both and use the method that feels best for 20 minutes several times a day. 3) You may use acetaminophen (Tylenol) or ibuprofen (Motrin, Advil) to control pain, unless another medicine was prescribed. [ NOTE : If you have chronic liver or kidney disease or ever had a stomach ulcer or GI bleeding, talk with your doctor before using these medicines.] Follow Up with your physician or this facility if your symptoms do not show signs of improvement after one week. Further testing may be needed. [NOTE: If x-rays were taken, they will be reviewed by a radiologist. You will be notified of any new findings that may affect your care.] Get Prompt Medical Attention if any of the following occur: -- Pain becomes worse and not controlled by prescribed pain medicine -- Weakness in the arm -- Increasing numbness in the arm -- Trouble breathing or swallowing Oxycodone Hydrochloride, Acetaminophen Oral tablet What is this medicine? ACETAMINOPHEN; OXYCODONE (a set a BENNY shanell fen; ox i KOE done) is a pain reliever. It is used to treat mild to moderate pain. How should I use this medicine? Take this medicine by mouth with a full glass of water. Follow the directions on the prescription label. Take your medicine at regular intervals. Do not take your medicine more often than directed. Talk to your school office manager regarding the use of this medicine in children. Special care may be needed. Patients over 65 years old may have a stronger reaction and need a smaller dose. What side effects may I notice from receiving this medicine? Side effects that you should report to your doctor or health urgent care technician as soon as possible: allergic reactions like skin rash, itching or hives, swelling of the face, lips, or tongue breathing difficulties, wheezing confusion light headedness or fainting spells severe stomach pain yellowing of the skin or the whites of the eyes Side effects that usually do not require medical attention (report to your doctor or health urgent care technician if they continue or are bothersome): dizziness drowsiness nausea vomiting What may interact with this medicine? alcohol antihistamines barbiturates like amobarbital, butalbital, butabarbital, methohexital, pentobarbital, phenobarbital, thiopental, and secobarbital benztropine drugs for bladder problems like solifenacin, trospium, oxybutynin, tolterodine, hyoscyamine, and methscopolamine drugs for breathing problems like ipratropium and tiotropium drugs for certain stomach or intestine problems like propantheline, homatropine methylbromide, glycopyrrolate, atropine, belladonna, and dicyclomine general anesthetics like etomidate, ketamine, nitrous oxide, propofol, desflurane, enflurane, halothane, isoflurane, and sevoflurane medicines for depression, anxiety, or psychotic disturbances medicines for sleep muscle relaxants naltrexone narcotic medicines (opiates) for pain phenothiazines like perphenazine, thioridazine, chlorpromazine, mesoridazine, fluphenazine, prochlorperazine, promazine, and trifluoperazine scopolamine tramadol trihexyphenidyl What if I miss a dose? If you miss a dose, take it as soon as you can. If it is almost time for your next dose, take only that dose. Do not take double or extra doses. Where should I keep my medicine? Keep out of the reach of children. This medicine can be abused. Keep your medicine in a safe place to protect it from theft. Do not share this medicine with anyone. Selling or giving away this medicine is dangerous and against the law. Store at room temperature between 20 and 25 degrees C (68 and 77 degrees F). Keep container tightly closed. Protect from light. This medicine may cause accidental overdose and if it is taken by other adults, children, or pets. Flush any unused medicine down the toilet to reduce the chance of harm. Do not use the medicine after the expiration date. What should I tell my health care provider before I take this medicine? They need to know if you have any of these conditions: brain tumor Crohn's disease, inflammatory bowel disease, or ulcerative colitis drink more than 3 alcohol containing drinks per day drug abuse or addiction head injury heart or circulation problems kidney disease or problems going to the bathroom liver disease lung disease, asthma, or breathing problems an unusual or allergic reaction to acetaminophen, oxycodone, other opioid analgesics, other medicines, foods, dyes, or preservatives or trying to get breast-feeding What should I watch for while using this medicine? Tell your doctor or health urgent care technician if your pain does not go away, if it gets worse, or if you have new or a different type of pain. You may develop tolerance to the medicine. Tolerance means that you will need a higher dose of the medication for pain relief. Tolerance is normal and is expected if you take this medicine for a long time. Do not suddenly stop taking your medicine because you may develop a severe reaction. Your body becomes used to the medicine. This does NOT mean you are addicted. Addiction is a behavior related to getting and using a drug for a non-medical reason. If you have pain, you have a medical reason to take pain medicine. Your doctor will tell you how much medicine to take. If your doctor wants you to stop the medicine, the dose will be slowly lowered over time to avoid any side effects. You may get drowsy or dizzy. Do not drive, use machinery, or do anything that needs mental alertness until you know how this medicine affects you. Do not stand or sit up quickly, especially if you are an older patient. This reduces the risk of dizzy or fainting spells. Alcohol may interfere with the effect of this medicine. Avoid alcoholic drinks. There are different types of narcotic medicines (opiates) for pain. If you take more than one type at the same time, you may have more side effects. Give your health care provider a list of all medicines you use. Your doctor will tell you how much medicine to take. Do not take more medicine than directed. Call emergency for help if you have problems breathing. The medicine will cause constipation. Try to have a bowel movement at least every 2 to 3 days. If you do not have a bowel movement for 3 days, call your doctor or health urgent care technician. Do not take Tylenol (acetaminophen) or medicines that have acetaminophen with this medicine. Too much acetaminophen can be very dangerous. Many nonprescription medicines contain acetaminophen. Always read the labels carefully to avoid taking more acetaminophen. Prednisone Oral tablet What is this medicine? PREDNISONE (PRED ni sone) is a corticosteroid. It is commonly used to treat inflammation of the skin, joints, lungs, and other organs. Common conditions treated include asthma, allergies, and arthritis. It is also used for other conditions, such as blood disorders and diseases of the adrenal glands. How should I use this medicine? Take this medicine by mouth with a glass of water. Follow the directions on the prescription label. Take this medicine with food. If you are taking this medicine once a day, take it in the morning. Do not take more medicine than you are told to take. Do not suddenly stop taking your medicine because you may develop a severe reaction. Your doctor will tell you how much medicine to take. If your doctor wants you to stop the medicine, the dose may be slowly lowered over time to avoid any side effects. Talk to your school office manager regarding the use of this medicine in children. Special care may be needed. What side effects may I notice from receiving this medicine? Side effects that you should report to your doctor or health urgent care technician as soon as possible: allergic reactions like skin rash, itching or hives, swelling of the face, lips, or tongue changes in emotions or moods changes in vision depressed mood eye pain fever or chills, cough, sore throat, pain or difficulty passing urine increased thirst swelling of ankles, feet Side effects that usually do not require medical attention (report to your doctor or health urgent care technician if they continue or are bothersome): confusion, excitement, restlessness headache nausea, vomiting skin problems, acne, thin and shiny skin trouble sleeping weight gain What may interact with this medicine? Do not take this medicine with any of the following medications: metyrapone mifepristone This medicine may also interact with the following medications: aminoglutethimide amphotericin B aspirin and aspirin-like medicines barbiturates certain medicines for diabetes, like glipizide or glyburide cholestyramine cholinesterase inhibitors cyclosporine digoxin diuretics ephedrine female hormones, like estrogens and control pills isoniazid ketoconazole NSAIDS, medicines for pain and inflammation, like ibuprofen or naproxen phenytoin rifampin toxoids vaccines warfarin What if I miss a dose? If you miss a dose, take it as soon as you can. If it is almost time for your next dose, talk to your doctor or health urgent care technician. You may need to miss a dose or take an extra dose. Do not take double or extra doses without advice. Where should I keep my medicine? Keep out of the reach of children. Store at room temperature between 15 and 30 degrees C (59 and 86 degrees F). Protect from light. Keep container tightly closed. Throw away any unused medicine after the expiration date. What should I tell my health care provider before I take this medicine? They need to know if you have any of these conditions: Union's syndrome diabetes glaucoma heart disease high blood pressure infection (especially a virus infection such as chickenpox, cold sores, or herpes) kidney disease liver disease mental illness myasthenia gravis osteoporosis seizures stomach or intestine problems thyroid disease an unusual or allergic reaction to lactose, prednisone, other medicines, foods, dyes, or preservatives or trying to get breast-feeding What should I watch for while using this medicine? Visit your doctor or health urgent care technician for regular checks on your progress. If you are taking this medicine over a prolonged period, carry an identification card with your name and address, the type and dose of your medicine, and your doctor's name and address. This medicine may increase your risk of getting an infection. Tell your doctor or health urgent care technician if you are around anyone with measles or chickenpox, or if you develop sores or blisters that do not heal properly. If you are going to have surgery, tell your doctor or health urgent care technician that you have taken this medicine within the last twelve months. Ask your doctor or health urgent care technician about your diet. You may need to lower the amount of salt you eat. This medicine may affect blood sugar levels. If you have diabetes, check with your doctor or health urgent care technician before you change your diet or the dose of your diabetic medicine. Acetaminophen Oral tablet What is this medicine? ACETAMINOPHEN (a set a BENNY shanell fen) is a pain reliever. It is used to treat mild pain and fever. How should I use this medicine? Take this medicine by mouth with a glass of water. Follow the directions on the package or prescription label. Take your medicine at regular intervals. Do not take your medicine more often than directed. Talk to your school office manager regarding the use of this medicine in children. While this drug may be prescribed for children as young as 6 years of age for selected conditions, precautions do apply. What side effects may I notice from receiving this medicine? Side effects that you should report to your doctor or health urgent care technician as soon as possible: allergic reactions like skin rash, itching or hives, swelling of the face, lips, or tongue breathing problems fever or sore throat redness, blistering, peeling or loosening of the skin, including inside the mouth trouble passing urine or change in the amount of urine unusual bleeding or bruising unusually weak or tired yellowing of the eyes or skin Side effects that usually do not require medical attention (report to your doctor or health urgent care technician if they continue or are bothersome): headache nausea, stomach upset What may interact with this medicine? alcohol imatinib isoniazid other medicines with acetaminophen What if I miss a dose? If you miss a dose, take it as soon as you can. If it is almost time for your next dose, take only that dose. Do not take double or extra doses. Where should I keep my medicine? Keep out of reach of children. Store at room temperature between 20 and 25 degrees C (68 and 77 degrees F). Protect from moisture and heat. Throw away any unused medicine after the expiration date. What should I tell my health care provider before I take this medicine? They need to know if you have any of these conditions: if you frequently drink alcohol containing drinks liver disease an unusual or allergic reaction to acetaminophen, other medicines, foods, dyes or preservatives or trying to get breast-feeding What should I watch for while using this medicine? Tell your doctor or health urgent care technician if the pain lasts more than 10 days (5 days for children), if it gets worse, or if there is a new or different kind of pain. Also, check with your doctor if a fever lasts for more than 3 days. Do not take other medicines that contain acetaminophen with this medicine. Always read labels carefully. If you have questions, ask your doctor or pharmacist. If you take too much acetaminophen get medical help right away. Too much acetaminophen can be very dangerous and cause liver damage. Even if you do not have symptoms, it is important to get help right away. Ibuprofen Oral tablet What is this medicine? IBUPROFEN (eye BYOO proe fen) is a non-steroidal anti-inflammatory drug (NSAID). It is used for dental pain, fever, headaches or migraines, osteoarthritis, rheumatoid arthritis, or painful monthly periods. It can also relieve minor aches and pains caused by a cold, flu, or sore throat. How should I use this medicine? Take this medicine by mouth with a glass of water. Follow the directions on the prescription label. Take this medicine with food if your stomach gets upset. Try to not lie down for at least 10 minutes after you take the medicine. Take your medicine at regular intervals. Do not take your medicine more often than directed. A special MedGuide will be given to you by the pharmacist with each prescription and refill. Be sure to read this information carefully each time. Talk to your school office manager regarding the use of this medicine in children. Special care may be needed. What side effects may I notice from receiving this medicine? Side effects that you should report to your doctor or health urgent care technician as soon as possible: allergic reactions like skin rash, itching or hives, swelling of the face, lips, or tongue black or bloody stools, blood in the urine or in vomit breathing problems changes in vision chest pain general ill feeling or flu-like symptoms nausea or vomiting redness, blistering, peeling or loosening of the skin, including inside the mouth slurred speech or weakness on one side of the body stomach pain unexplained weight gain or swelling unusually weak or tired yellowing of eyes or skin Side effects that usually do not require medical attention (report to your doctor or health urgent care technician if they continue or are bothersome): constipation or diarrhea dizziness gas or heartburn stomach upset What may interact with this medicine? Do not take this medicine with any of the following medications: cidofovir ketorolac methotrexate pemetrexed This medicine may also interact with the following medications: alcohol aspirin diuretics lithium other drugs for inflammation like prednisone warfarin What if I miss a dose? If you miss a dose, take it as soon as you can. If it is almost time for your next dose, take only that dose. Do not take double or extra doses. Where should I keep my medicine? Keep out of the reach of children. Store at room temperature between 15 and 30 degrees C (59 and 86 degrees F). Keep container tightly closed. Throw away any unused medicine after the expiration date. What should I tell my health care provider before I take this medicine? They need to know if you have any of these conditions: asthma cigarette smoker drink more than 3 alcohol containing drinks a day heart disease or circulation problems such as heart failure or leg edema (fluid retention) high blood pressure kidney disease liver disease stomach bleeding or ulcers an unusual or allergic reaction to ibuprofen, aspirin, other NSAIDS, other medicines, foods, dyes, or preservatives or trying to get breast-feeding What should I watch for while using this medicine? Tell your doctor or healthcare professional if your symptoms do not start to get better or if they get worse. This medicine does not prevent heart attack or stroke. In fact, this medicine may increase the chance of a heart attack or stroke. The chance may increase with longer use of this medicine and in people who have heart disease. If you take aspirin to prevent heart attack or stroke, talk with your doctor or health urgent care technician. Do not take other medicines that contain aspirin, ibuprofen, or naproxen with this medicine. Side effects such as stomach upset, nausea, or ulcers may be more likely to occur. Many medicines available without a prescription should not be taken with this medicine. This medicine can cause ulcers and bleeding in the stomach and intestines at any time during treatment. Ulcers and bleeding can happen without warning symptoms and can cause . To reduce your risk, do not smoke cigarettes or drink alcohol while you are taking this medicine. You may get drowsy or dizzy. Do not drive, use machinery, or do anything that needs mental alertness until you know how this medicine affects you. Do not stand or sit up quickly, especially if you are an older patient. This reduces the risk of dizzy or fainting spells. This medicine can cause you to bleed more easily. Try to avoid damage to your teeth and gums when you brush or floss your teeth. You have been given the following additional information: Tendonitis Ulnar Nerve Palsy Radiculopathy, Cervical Oxycodone Hydrochloride, Acetaminophen Oral tablet Prednisone Oral tablet Acetaminophen Oral tablet Ibuprofen Oral tablet (Electronically signed by Uriel Estrada DO 02/18/2017 8:12)
--- NOTE | 2017-02-18 08:12 | ED MAR SUMMARY ---
..... Medication Administration Record [facility] [address] [place] [id number] Patient: MANUEL ARGUETA Visit ID: [id number] 61y, M Weight: 72.5 kg Height/Length: 67 in BMI: 25.1 ALLERGIES: No Known Drug Allergy
--- NOTE | 2017-02-18 08:12 | ED MED RECONCILIATION SUMMARY ---
Patient: MANUEL ARGUETA Medication Reconciliation Report [facility] VisitID: [id number] [place] [address] 61y, M Registration Date/Time: 02/18/2017 Weight: 72.5 kg Height/Length: 67 in. BMI: 25.1 ALLERGIES: No Known Drug Allergy The patient's Home Medications are listed below: CONTINUE TAKING THE FOLLOWING MEDICATIONS: Atorvastatin Calcium Oral 20 mg, daily Citalopram Hydrobromide Oral 30mg, daily The source(s) of the original Home Medication information: Not obtained. The following Medications were given to the patient in the Emergency Department: None. The following Medications were prescribed to the patient: Acetaminophen (available over the counter): take according to label instructions. -- Uriel Estrada DO Motrin IB 200 mg (available over the counter): take 2 orally every 8 hours as needed for pain, stiffness or swelling -- Uriel Estrada DO Oxycodone/APAP 5 mg/325 mg: take 1-2 tablets orally every 8 hours as needed for pain. Dispense twelve (12). No refill. -- Uriel Estrada DO Prednisone 20 mg: take 3 orally every day for 5 days. Dispense fifteen (15). No refills. -- Uriel Estrada DO
--- NOTE | 2017-02-18 08:12 | ED MAR SUMMARY ---
..... Medication Administration Record [facility] [address] [place], [place] [id number] Patient: MANUEL ARGUETA Visit ID: [id number] 61y, M Weight: 72.5 kg Height/Length: 67 in BMI: 25.1 ALLERGIES: No Known Drug Allergy
== END 2017-02-18 07:40 | disposition home or self-care (01) ==
LOC: ED SRH 06:39
DX: M77.01 Medial epicondylitis, right elbow (principal); M54.2 Cervicalgia; G56.10 Other lesions of median nerve, unspecified upper limb; X50.0XXA Overexertion from strenuous movement or load, initial encounter; Y93.H9 Activity, other involving exterior property and land maintenance, building and construction; Y92.009 Unspecified place in unspecified non-institutional (private) residence as the place of occurrence of the external cause; Y99.0 Civilian activity done for income or pay; F17.210 Nicotine dependence, cigarettes, uncomplicated